=== PATIENT | female | born 1945 | race Caucasian/White ===

== ENCOUNTER 2018-07-04 10:04 | Day surgery (SDC) | payer MEDICARE, BC ==
[2018-07-04] MEDS ORDERED: PROPOFOL 60 ML (11:48)
== END 2018-07-04 15:00 | disposition home or self-care (01) ==
LOC: GIL 10:04
DX: R19.4 Change in bowel habit (principal); K64.8 Other hemorrhoids; D12.5 Benign neoplasm of sigmoid colon; I10 Essential (primary) hypertension; E11.9 Type 2 diabetes mellitus without complications; E03.9 Hypothyroidism, unspecified; Z79.82 Long term (current) use of aspirin; Z79.84 Long term (current) use of oral hypoglycemic drugs
CPT/HCPCS: 45380; 82962; 88305